=== PATIENT | female | born 1995 | race Hispanic/Latino ===

== ENCOUNTER → 2018-03-25 | Outpatient (REF) | payer SELFPAY ==
[2018-03-25 14:19] LABS: HEMATOCRIT 37.3 % (36.0-47.0); HEMOGLOBIN 12.5 g/dl (12.0-15.5); MEAN CORPUSCULAR HEMOGLOBIN 29.5 pg (27.0-33.0); MEAN CORPUSCULAR HGB CONC 33.5 g/dl (32.0-36.5); PLATELET COUNT, AUTOMATED 277 10^3/uL (150-450); RED BLOOD COUNT 4.24 10^6/uL (4.00-5.40); RED CELL DISTRIBUTION WIDTH 13.7 % (11.5-14.5); WHITE BLOOD COUNT 8.2 10^3/uL (4.0-10.0)
[2018-03-25 14:53] LABS: HCG, SERUM QUANTITATIVE 6729 MIU/ML
[2018-03-26 12:20] LABS: HBsAg Prenatal NEGATIVE (NEGATIVE); RUBELLA IgG QUALITATIVE IMMUNE (IMMUNE)
[2018-03-26 12:48] LABS: HEPATITIS C VIRUS ABY INDEX 0.1 INDEX (<0.8)
[2018-03-26 12:49] LABS: HIV 1&2 SCREEN CENTAUR NEGATIVE (NEGATIVE)
== END ==
LOC: M LAB REF 13:23
DX: O36.80X0 Pregnancy with inconclusive fetal viability, not applicable or unspecified (principal); Z32.01 Encounter for pregnancy test, result positive

== ENCOUNTER 2020-04-23 08:15 | Inpatient (IN) | payer OTHER ==
[~2020-04-23] VITALS: Ht 154.9 cm; Wt 90.1 kg
[2020-04-23] VITALS (9 sets, daily range): BP systolic 122–142; BP diastolic 60–74
[~2020-04-23 08:15] MED LIST: ACET-683 PO; IBUP80TA PO; PRENTAB9 PO
[2020-04-23] MEDS: PRENATAL VITAMINS CHEWABLE TABLET PO SCH (09:00)
[2020-04-23] MEDS ORDERED: LACTATED RINGER'S 1000 ML IV STA (09:04)
[2020-04-23] MEDS ORDERED: LR 1,000 ML IV SCH (09:04)
--- NOTE | 2020-04-23 09:31 | HPEPDOC ---
Obstetrical History & Physical General Date of Admission Apr 23, 2020 at 09:04 History of Present Illness c/o contractions starting at 0545 with spotting at 0730 Chief Complaint: Contractions, term Information Provided By: Patient Age: 24 : 2 Term: 1 Pre-term: 0 Abortions: 0 Livin Care Care: Good Care Dating Final EDC: Apr 17, 2020 Final EDC for Daily Update: Apr 17, 2020 Final EDC by: LMP LMP: Jul 12, 2019 EGA at Admission: 40 (+6) Antepartum Course Diagnos(e)s maternal obesity, short interval Height (inches): 61 Pre- weight (lbs.): 179 Admission Weight (lbs.): 200 Change in Weight (lbs.): 21 Past Medical History Past Obstetrical History : Past Obstetrical History: Multigravida Date of Delivery: Nov 20, 2018 Gestation: 39 (+4) Type of Delivery: Spontaneous Vaginal Del. Sex of Infant: Female Complications: No LEADERSHIP DEVELOPMENT CONSULTANT History: No pertinent history Past Medical History Surgical History: Denies/None Family History Significant Family History: Diabetes (MGM, MGF, PGM), Hypertension (mother, father) Social History Marital Status: Family situation: Spouse/partner home Psychosocial History: No pertinent psych hx * Smoker: non-smoker Alcohol: Denies Drugs: denies Abuse Violence Screening Have you been hit/kicked/slapp: No Have you been sexually assault: No Imunizations Tdap status: current Influenza Status: needs Allergies Coded Allergies: No Known Drug Allergies (Verified Allergy, Unknown, 11/26/18) Medications Scheduled No.137/Iron/Folic Acd ( Vitamin Tablet) 1 Each Tablet, 1 TAB PO DAILY Physical Examination Physical Examination GENERAL: Alert and oriented times three. BREAST: . ABDOMEN: Gravid and non-tender to touch. FETUS: Is vertex (VTX) by sterile vaginal examination (SVE), fetus is vertex (VTX) by Darnell. HEART RATE: Regular rate and rhythm. LUNGS: Clear to auscultation (CTA). EXTREMITIES: Mild pedal edema. Laboratory Data 24H LABS Laboratory Tests 2 04/23/20 09:08: Serology Scanned Report Hepatitis B Testing Pertinent Laboratoy Data Blood Type: O+ RBC Antibody Screen: Negative HIV: Negative Hepatitis B: Negative Rapid Plasma Reagin: Nonreactive Rubella: Immune Varicella: Immune Chlamydia/Gonorrhea: Negative Group B Streptococcus: Negative Glucose Tolerance Test: 107 Anatomy Ultrasound Placenta Location: Posterior Normal Anatomy: Yes Placenta Previa: No Vaginal Examination Dilation: 8 cm Effacement: 100% Station: -1 Cervical Consistency: Soft Cervical Position: Middle Presentation: Cephalic presentation Assessment Heart Rate (FHR): 120 Variability: Moderate Accelerations: Positive Decelerations: None Tocometer Contractions: Yes Frequency: regular, every 2-2 min. Duration: greater than 60 seconds Strength: palpated as strong, resting tone palp/soft Multi-drug resistant Organism: No history of MDRO Assessment/Plan Assessment Yolis is a 24-year-old (G)2 para (P)1-0-0-1 at 40+6 weeks by 8+5-week ultrasound. Presents to Labor and Delivery (L&D) in active labor at term. Plan Admit and orient. Photographic Technician and consent. Diet: clear liquids. Group B Streptococcus (GBS) [negative]. Labs and intravenous (IV) per unit protocol. Counseled on Pitocin and induction of labor (IOL). Lactated Ringers (LR): Bolus 1000 mL, then at 125 mL/hr. Anticipate [normal spontaneous delivery ()]. C-S as appropriate. SARAY ACEVES CNM Apr 23, 2020 09:31
[2020-04-23 09:33] LABS: HEMATOCRIT 38.3 % (36.0-47.0); HEMOGLOBIN 12.6 g/dl (12.0-15.5); MEAN CORPUSCULAR HEMOGLOBIN 30.1 pg (27.0-33.0); MEAN CORPUSCULAR HGB CONC 32.9 g/dl (32.0-36.5); MEAN CORPUSCULAR VOLUME 91.4 fl (80.0-96.0); PLATELET COUNT, AUTOMATED 142 10^3/uL (150-450); RED BLOOD COUNT 4.19 10^6/uL (4.00-5.40); WHITE BLOOD COUNT 11.3 10^3/uL (4.0-10.0)
[2020-04-23] MEDS ORDERED: OXYTOCIN DRIP 30 UNITS in IV 1 EA IV SCH (09:39)
[2020-04-23] MEDS ORDERED: METHYLERGONOVINE MALEATE 0.2 MG TAB PO PRN (10:45)
[2020-04-23] MEDS ORDERED: DOCUSATE SODIUM 100MG CAPSULE PO PRN (10:45)
[2020-04-23] MEDS ORDERED: RHOGAM 300 MCG (1500 IU) INJ (J2790) IM SCH (10:45)
[2020-04-23] MEDS ORDERED: IBUPROFEN 800 MG TAB PO PRN (10:45)
[2020-04-23] MEDS ORDERED: MEASLES,MUMPS,RUBELLA VACCINE INJ (MMR-II) (90707) SC SCH (10:45)
[2020-04-23] MEDS ORDERED: BENZOCAINE 20% HEMORRHOIDAL OINTMENT 28GM TUBE TOP PRN (10:45)
[2020-04-23] MEDS ORDERED: ACETAMINOPHEN TAB 650MG DOSE (2X325MG) PO PRN (10:45)
--- NOTE | 2020-04-23 11:55 | DNPDOC ---
[facility] Delivery Note Delivery Note DATE OF DELIVERY: 23Apr2020 PREDELIVERY DIAGNOSIS: 40-6/7 weeks' gestation and labor. POST DELIVERY DIAGNOSIS: Delivered. PROCEDURE: Spontaneous vaginal delivery. TECHNICAL SERVICES CONSULTANT: April Aceves CNM ANESTHESIA: none. ESTIMATED BLOOD LOSS: 100 mL. FINDINGS: 7 pound 15 ounce female Myriam, Score 8/9, no nuchal cord noted. DELIVERY SUMMARY: Patient is a 24-year-old 2 now para 2-0-0-2 who was admitted to labor and delivery for active labor on 23Apr2020. Yolis c/o increased pressure and urge to push and was found to be C/C/0 with a BBOW at 0956, AROM clear with exam. Pt progressed to over an intact perineum in OA presentation with restitution to BRITTANY. No nuchal cord noted after delivery of the head. Left anterior shoulder delivered easily followed by the posterior shoulder and corpus. The vigorous female infant was placed immediately on the maternal abdomen where she was dried and stimulated to cry. Pitocin infusion was initiated per protocol. The cord was clamped x2 after pulsation ceased and cut by the FOB. Cord blood was collected and sent for testing. Placenta delivered spontaneously in tarik presentation with minimal bleeding. The fundus firmed immediately at u-1. The vagina and cervix were swept with no clots noted. Mother and baby entered the recovery phase in stable condition. APRIL ACEVES CNM Apr 23, 2020 11:55
[2020-04-24 06:00] VITALS: BP 132/59
--- NOTE | 2020-04-24 07:01 | IPNPDOC ---
Progress Note Date of Service: Apr 24, 2020 Day#: 1 Progress Note SUBJECT: Patient is a 24-year-old 2 now para 2-0-0-2 who was admitted to labor and delivery for active labor on [id number] of a 7 pound 15 ounce female infant Myriam, Score 8/9, no nuchal cord noted. doing well day # 1. She has been ambulating, voiding spontaneously without issue and tolerating regular diet. Breast feeding without issue. Reports lochia is minimal. bonding well with baby. OBJECTIVE: VITAL SIGNS: Within normal limits, afebrile. Alert and oriented times three. normal work of breathing Heart rate: Regular rate and rhythm Abdomen: Fundus firm at U-2. ASSESSMENT: Patient is a 24-year-old 2 now para 2-0-0-2 who was admitted to labor and delivery for active labor on [id number] of a 7 pound 15 ounce female Myriam, Score 8/9, no nuchal cord noted. doing well day # 1. Vitals within normal limits, afebrile, hemodynamically stable with no evidence of infection. PLAN: 1. Discharge to home tomorrow. 2. Tylenol and Motrin for pain. 3. Encourage breast feeding and ambulation. 4. nexplanon for contraception 5. Routine PP visit in 6 weeks in clinic. 6. Discussed return precautions at length. DELIVERY SUMMARY: VS, I&O, 24H, Fishbone Vital Signs/I&O Vital Signs Date Time Temp Pulse Resp B/P (MAP) Pulse Ox O2 Delivery O2 Flow Rate FiO2 04/24/20 06:00 98.1 77 18 132/59 (83) 04/23/20 18:10 95 Room Air I&O- Last 24 Hours up to 6 AM 04/24/20 06:00 Intake Total 1326 ml Output Total 400 ml Balance 926 ml Laboratory Data 24H LABS Laboratory Tests 2 04/23/20 09:08: Serology Scanned Report Hepatitis B Testing 04/23/20 09:21: Nucleated Red Blood Cells % (auto) 0.0, Syphilis Serology NONREACTIVE CBC/BMP Laboratory Tests 04/23/20 09:21 TONY HAMMER MD Apr 24, 2020 07:01
[2020-04-24] MEDS: PRENATAL VITAMINS CHEWABLE TABLET PO SCH (11:33)
[2020-04-24 18:00] VITALS: BP 122/64
[2020-04-25 06:29] VITALS: BP 117/57
[2020-04-25] MEDS ORDERED: IBUP80TA PO (07:26)
[2020-04-25] MEDS ORDERED: DOK1CAP7 PO (07:26)
--- NOTE | 2020-04-25 07:34 | IPNPDOC ---
Progress Note Date of Service: Apr 25, 2020 Day#: 1 Progress Note SUBJECT: 24 year-old 2 now Para 2 status post uncomplicated spontaneous vaginal delivery at 40.6 weeks' 04/24/20 of a FEMALE 7 pounds 15 ounces doing well day # 1. She has been ambulating, voiding spontaneously without issue and tolerating regular diet. Breast feeding without issue. Reports lochia is [like a normal period]. Patient is ambulating well. [Reports some cramping with . Denies any pain. Voiding and stooling without difficulty]. OBJECTIVE: VITAL SIGNS: Within normal limits, afebrile. Alert and oriented times three. Breath sounds clear to auscultation. Heart rate: Regular rate and rhythm, no murmurs, rubs or gallops. Abdomen: Fundus firm at U-2. Soft, NTTP. [Minimal] lochia. ASSESSMENT: 24year-old 2 now Para 2 status post uncomplicated spontaneous vaginal delivery after presenting in active labor with spontaneous rupture of membranes (SROM), delivered 40.6 weeks', doing well on day 1 Vitals within normal limits, afebrile, hemodynamically stable with no evidence of infection. DISCUSSED CYSTITIS MASTITIS PHLEBITIS PERINEAL AND BREAST CARE PLAN: 1. Discharge to home today. 2. Tylenol and Motrin for pain. 3. Encourage breast feeding and ambulation. 4. DISCUSS BC AT 6 WEEK VISIT 5. Routine PP visit in 6 weeks in clinic. 6. Discussed return precautions at length. Ht / Wt Ht / Wt Height:5 Feet 1 Inches Weight: 90.100 Kg Vital Signs Vital Signs Date Time Temp Pulse Resp B/P (MAP) Pulse Ox O2 Delivery O2 Flow Rate FiO2 04/25/20 06:29 97.9 80 18 117/57 (77) 04/24/20 18:00 98 Room Air Laboratory Data Laboratory Tests 04/23/20 09:21 VS, I&O, 24H, Fishbone Vital Signs/I&O Vital Signs Date Time Temp Pulse Resp B/P (MAP) Pulse Ox O2 Delivery O2 Flow Rate FiO2 04/25/20 06:29 97.9 80 18 117/57 (77) 04/24/20 18:00 98 Room Air Gerard Reagan MD Apr 25, 2020 07:33
[2020-04-25] MEDS: PRENATAL VITAMINS CHEWABLE TABLET PO SCH (08:56)
== END 2020-04-25 09:05 | disposition home or self-care (01) | DRG 807 ==
LOC: M LDO 08:15 → M LDI 09:04 → M OBS 12:19
PROVIDERS: ADMIT Registered Nurse; ATTEND Registered Nurse
PROC: 10E0XZZ Delivery of Products of Conception, External Approach (ICD-10-PCS; principal; 2020-04-23)
DX: O48.0 Post-term pregnancy (principal); Z37.0 Single live birth; Z3A.40 40 weeks gestation of pregnancy; E66.9 Obesity, unspecified; O99.214 Obesity complicating childbirth

== ENCOUNTER 2023-01-29 00:45 | Emergency (ER) | payer OTHER ==
[~2023-01-29] VITALS: Ht 160 cm; Wt 93.8 kg
[~2023-01-29 00:45] MED LIST changes: +DOK1CAP4 PO
[2023-01-29 01:34] LABS: BASO % 0.2 % (0.0-1.0); EOS # 0.1 10^3/uL (0.0-0.5); EOS % 0.8 % (0.0-3.0); HEMATOCRIT 37.9 % (36.0-47.0); HEMOGLOBIN 12.9 g/dl (12.0-15.5); LYMPH # 2.6 10^3/uL (1.5-5.0); LYMPH % 19.8 % (24.0-44.0); MEAN CORPUSCULAR HEMOGLOBIN 30.5 pg (27.0-33.0); MEAN CORPUSCULAR VOLUME 89.6 fl (80.0-96.0); MONO # 1.2 10^3/uL (0.0-0.8); MONO % 9.2 % (2.0-8.0); NEUTROPHILS # 9.1 10^3/uL (1.5-8.5); NEUTROPHILS % 69.5 % (36.0-66.0); PLATELET COUNT, AUTOMATED 230 10^3/uL (150-450); RED BLOOD COUNT 4.23 10^6/uL (4.00-5.40); WHITE BLOOD COUNT 13.1 10^3/uL (4.0-10.0)
[2023-01-29 02:29] LABS: CK-MB VALUE MASS < 1.0 NG/ML (<3.6)
[2023-01-29 02:32] LABS: HCG, SERUM QUALITATIVE NEGATIVE (NEGATIVE); LIPASE 35 U/L (12-53)
[2023-01-29 02:35] LABS: ALKALINE PHOSPHATASE 76 U/L (46-116); ALT/SGPT 23 U/L (7.0-40); AST/SGOT 24 U/L (<34); BILIRUBIN,DIRECT 0.1 MG/DL (<0.4); BILIRUBIN,TOTAL 0.4 MG/DL (0.3-1.2); BLOOD UREA NITROGEN 12 MG/DL (9-23); CALCIUM LEVEL 9.4 MG/DL (8.5-10.1); CARBON DIOXIDE LEVEL 24 MMOL/L (20-31); CHLORIDE LEVEL 106 MMOL/L (98-107); CREATININE FOR GFR 0.59 MG/DL (0.55-1.30); GLOMERULAR FILTRATION RATE > 60.0 (>60); GLUCOSE, FASTING 96 MG/DL (60-100); POTASSIUM SERUM 3.8 MMOL/L (3.5-5.1); SODIUM LEVEL 141 MMOL/L (136-145); TOTAL PROTEIN 7.2 G/DL (5.7-8.2)
[2023-01-29 02:37] LABS: CPK CREATINE PHOSPHOKINASE 183 U/L (34-145); MB/CK RELATIVE INDEX 0.54 (< OR =4)
[2023-01-29] MEDS ORDERED: MAALOX 30 ML SUSP *UDC PO ONE (06:30)
[2023-01-29] MEDS ORDERED: ISOVUE-370 76% 100ML VIAL As Ordered ONE (07:11)
[2023-01-29 08:06] VITALS: TEMP 98
[2023-01-29] MEDS ORDERED: CARA1TAB6 PO (08:12)
[2023-01-29 08:27] VITALS: BP 120/61; O2SAT 98
== END 2023-01-29 08:35 | disposition home or self-care (01) ==
LOC: M ED 00:45
DX: R10.13 Epigastric pain (principal); Z83.3 Family history of diabetes mellitus; Z82.49 Family history of ischemic heart disease and other diseases of the circulatory system
CPT/HCPCS: 36415; 71046; 71275; 74177; 80048; 80076; 81001; 82550; 82553; 83690; 84484; 84703; 85025; 87086; 93005; 93041; 99284; Q9967

== ENCOUNTER → 2024-05-19 | Outpatient (CLI) | payer OTHER ==
[~2024-05-19] MED LIST changes: +CARA1TAB6 PO
== END ==
LOC: M SOG 08:41
PROVIDERS: ATTEND Physician Assistant
DX: M25.531 Pain in right wrist (principal); M25.532 Pain in left wrist

== ENCOUNTER 2024-06-20 06:46 | Day surgery (SDC) | payer OTHER ==
[~2024-06-20] VITALS: Ht 160 cm; Wt 88.5 kg
[~2024-06-20 06:46] MED LIST changes: +ETON68IM SC
[2024-06-20] MEDS ORDERED: NS (Normal Saline) 0.9% 1,000 ML IV SCH (07:35)
[2024-06-20] MEDS ORDERED: LIDOCAINE 2% 100MG/5ML SDV (FOR ANES.) As Ordered ONE (07:51)
[2024-06-20] MEDS ORDERED: propofoL 200 MG/20 ML VIAL As Ordered ONE (07:51)
[2024-06-20] MEDS ORDERED: MIDAZOLAM INJ 2MG/2ML VIAL As Ordered ONE (07:51)
[2024-06-20] MEDS ORDERED: ONDANSETRON 4MG 2ML VIAL As Ordered ONE (07:51)
[2024-06-20] MEDS ORDERED: fentaNYL 100 MCG/2 ML INJECTION As Ordered ONE (07:51)
[2024-06-20] MEDS ORDERED: KETAMINE HCL 200MG/20ML VIAL As Ordered ONE (07:58)
[2024-06-20] MEDS ORDERED: ACETAMINOPHEN 1000MG/100ML IV BAG As Ordered ONE (07:59)
[2024-06-20] MEDS ORDERED: KETOROLAC 60MG 2ML VIAL As Ordered ONE (08:11)
[2024-06-20 09:25] VITALS: BP 111/59; TEMP 97.6; O2SAT 97
== END 2024-06-20 09:30 | disposition home or self-care (01) ==
LOC: M SDC 06:46
PROVIDERS: ATTEND Orthopaedic Surgery Hand Surgery
DX: G56.01 Carpal tunnel syndrome, right upper limb (principal); Z79.3 Long term (current) use of hormonal contraceptives
CPT/HCPCS: 29848; 81025; J0131; J0665; J1100; J1885; J2250; J2405; J3010